=== PATIENT | male | born 2000 | race Caucasian/White ===

== ENCOUNTER 2023-07-22 09:20 | Outpatient (CLI) | payer OTHER ==
--- NOTE | 2023-07-22 09:20 | Sleep Patient Instructions ---
Sleep Center Visit Summary - Patient Visit Information Reason for Visit: Initial consult for evaluation of sleep disordered breathing and other sleep issues. - Patient Instructions Instructions Attached: Sleep Study, Sleep Study Home Monitor Additional Instructions: You will be completing a sleep study, either an in-lab polysomnography (PSG) or home sleep study (HST). You will follow-up in the sleep care office after the sleep study is completed to hear the results and talk about therapy, if needed. You will be called by our office staff to schedule this appointment, but you may contact us with any questions. - Clinic Information Contact: [facility] [address] [place] [id number] [email or web address] T: [phone]
--- NOTE | 2023-07-22 09:23 | SLEEP CARE CONSULTATION ---
Information from patient questionnaire entered by Mango Becerra. I have reviewed and concur with the information entered by Mango Becerra. This document represents the service I personally performed and the decisions made by me, Reema Ellsworth ARNP. History of Present Illness Service Date and Time: 07/22/2023 0840 Reason for Visit: New patient Chief Complaint: reports: Unrefreshed sleep, Excessive daytime sleepiness, Observed pauses in breathing, Frequent awakenings at night Date of Onset: OVER A YR Usual bedtime: 2200 Time it takes to fall asleep: 1-2HRS Snores at night: Yes Observed to quit breathing while asleep: Yes Sleeps alone due to snoring: No Number of times waking at night: 3-4 Reasons for waking at night: reports: Gasping for air (has in the past but not recently, last month), Bathroom, Other (UNKNOWN, NOISE). denies: Choking, Snoring Toss, Turn, or Twitch while sleeping: Yes Recalls having dreams: No Usually gets out of bed at: 0600 Feels refreshed in the morning: No Morning headache: Yes (every few days, last about an hour) Sleepy or fatigued during the day: No Ever fallen asleep while driving: No Takes day naps: No Dreams during day naps: No Additional HPI information: I had the pleasure of seeing MELCHOR MARIE today regarding the possibility of him having a sleep disorder. His current complaints are unrefreshed sleep, excessive daytime sleepiness, observed pauses in breathing and frequent night awakenings. He says he feels like he does not get enough sleep at night. His spouse tells him that he will hold his breath in his sleep and that he does snore. He thinks he may need more than 8 hours to feel rested but normally cannot sleep that long. - Parasomnia Symptoms Ever been unable to move upon waking from sleep: No Walks in sleep: Yes (when he was younger, no recent incidences as far as he knows) Talks in sleep: Yes Ever acted out dreams in sleep: No Ever felt weak in the knees when startled or emotional: No Bothered by creepy, crawly, restless sensations in legs: No Problems with memory or concentration: Yes (memory mostly, some concentration, easily distracted now) Subjective Initial [place] Sleepiness Scale score: 16 (05/10/24) Past Medical History Past Medical History: reports: Other (no significant medical history) Social History The patient's occupation is a AM. Patient is and lives in . Have you smoked in the past 12 months: No (uses smokeless tobacco) Alcohol use: Yes Alcohol amount and frequency: MINIMAL 1 DRINK EVERY 2 WEEKS Caffeine use: Yes Caffeine amount and frequency: 1-2 QD DURING THE WEEK NONE ON THE WEEKEND Family History Family history of sleep disordered breathing: No Allergies and Home Medications Known drug allergies: Yes ( LISTED) Drug allergies reviewed: Yes Home medication list reviewed: Yes (as listed) Allergy and home medication list: Allergies Penicillins Allergy (Verified 07/21/23 14:59) Home Medications Biotin See Rx Instructions .ROUTE .COMPLEX 07/22/23 [History] [place]-3 Fatty Acids [[place]-3] See Rx Instructions .ROUTE .COMPLEX 07/22/23 [History] Review of Systems Cardiovascular: denies: high blood pressure Gastrointestinal: denies: heartburn Urinary: reports: frequency, urgency Psychiatric: denies: anxiety, depression Ear/Nose/Throat: reports: wisdom teeth removed. denies: tonsillectomy Endocrine: reports: sluggishness, too hot or cold Musculoskeletal: reports: neck pain, back pain Physical Exam Vital signs obtained and entered by: MANGO Luis MA Blood Pressure: 128/80 (RIGHT ARM) Cuff size: regular Heart Rate: 62 O2 Saturation: 99 Height: 5 ft 11 in Weight: 163 lb Body Mass Index: 22.7 BMI Classification: Normal Neck circumference: 15.5 Mouth and throat: narrow oropharynx Soft palate: long Hard palate: arched Uvula: normal Uvula visualization: 50% Mallampati Class II Tongue: enlarged in size with teeth mccarthy on lateral edges Tonsils: 1+ Neck: normal w/o lymphadenopathy or thyromegaly Heart: regular rate and rhythm Lungs: clear bilaterally Impression and Plan 1. Suspected Obstructive Sleep Apnea-Hypopnea Syndrome, as suggested by a history of loud and irregular snoring, observed cessation of breath while asleep, gasping or choking in sleep, morning headache, frequent awakening during the night, unrefreshed sleep, cognitive impairment, and excessive daytime sleepiness. Narrow oropharynx and obesity are common predisposing factors for obstructive sleep apnea-hypopnea syndrome. I recommend proceeding to poly somnography to confirm the diagnosis and to assess severity. If the patient has significant sleep disordered breathing, a manual CPAP titration study will also be performed to find the optimal treatment pressure. I informed the patient of what the sleep studies involve and after some discussion, obtained agreement to proceed. The pathophysiology of obstructive sleep apnea-hypopnea syndrome was discussed with the patient and health risks of cardiovascular and cerebrovascular disease if not treated. Risks of drowsy driving discussed in detail and patient advised to avoid long distance driving and to car repairer pullman at the first sign of drowsiness. Patient agreed to plan. * Schedule polysomnography * Avoid long distance driving or driving when feeling sleepy. * Avoid alcohol, sedative and muscle relaxant around bedtime. * Review instructions provided by trained office staff on how to prepare for the sleep study. * Return for follow-up after sleep study completed. Plan: PSG and follow up Visit Type: In Office Time Spent with Patient (minutes): 18 Provider Statement: I spent 100% of the Face to Face Visit with the patient with greater than 50% spent counseling the patient and coordination of care.
[2023-07-22 09:24] VITALS: BP 128/80; O2SAT 99
== END 2023-07-22 09:21 | disposition home or self-care (01) ==
LOC: SC 09:20
PROVIDERS: ATTEND Nurse Practitioner Family
DX: R06.83 Snoring (principal); R06.81 Apnea, not elsewhere classified; G47.8 Other sleep disorders; R51.9 Headache, unspecified; R41.89 Other symptoms and signs involving cognitive functions and awareness; G47.10 Hypersomnia, unspecified; F17.290 Nicotine dependence, other tobacco product, uncomplicated
CPT/HCPCS: 99202; 99212

== ENCOUNTER 2023-08-12 12:55 | Outpatient (CLI) | payer OTHER | END 2023-08-12 12:56 | disposition home or self-care (01) | LOC: SC 12:55 | PROVIDERS: ATTEND Nurse Practitioner Family | DX: R06.83 Snoring (principal); G47.8 Other sleep disorders; R06.81 Apnea, not elsewhere classified; R51.9 Headache, unspecified; G47.10 Hypersomnia, unspecified | CPT/HCPCS: 95806 ==

== ENCOUNTER 2023-10-02 15:50 | Outpatient (CLI) | payer OTHER ==
--- NOTE | 2023-10-02 15:45 | SLEEP CARE CONSULTATION ---
Information from patient questionnaire entered by Mango Becerra. I have reviewed and concur with the information entered by Mango Becerra. This document represents the service I personally performed and the decisions made by , Reema Ellsworth ARNP. History of Present Illness Service Date and Time: 10/02/2023 1520 Initial [place] Sleepiness Scale score: 16 (07/11/23) Current [place] Sleepiness Scale score: 20 (10/02/23) Additional HPI information: MELCHOR MARIE returns via telephone visit for follow up and results of the recently performed home sleep study. The patient was informed of the following findings: The quality of the study is poor due to extensive loss of pulse oximetry signal. Possible obstructive sleep apnea-hypopnea based on the available airflow tracing. Due to the extensive data loss, this home sleep apnea test (HSAT) is non-diagnostic and should be repeated. Sleep Study - Results Type of Sleep Study: Home sleep study (COMPLETED 08/13/23) Polysomnography/Home Sleep Study results: Physician Impression: 1. The quality of the study is poor due to extensive loss of pulse oximetry signal. The length of the study is adequate (> 240 minutes). Please also see the tabulated and graphic data. 2. Possible obstructive sleep apnea-hypopnea based on the available airflow tracing. 3. Hypoxia cannot be determined. 4. Heart rate cannot be determined. Recommendation: Due to the extensive data loss, this home sleep apnea test (HSAT) is non- diagnostic and should be repeated. An in-laboratory polysomnography should be considered as it is more reliable, accurate, and the gold standard for diagnosing sleep-related breathing disorder Allergies and Home Medications Known drug allergies: Yes (as listed) Drug allergies reviewed: Yes Home medication list reviewed: Yes (no changes) Allergy and home medication list: Allergies Penicillins Allergy (Verified 10/02/23 15:20) Review of Systems Review of systems same as previous: Yes (NO CHANGE) Physical Exam Vital signs obtained and entered by: MANGO Luis MA Height: 5 ft 11 in (PER PT) Weight: 165 lb (PER PT) Body Mass Index: 23.0 BMI Classification: Normal Impression and Plan 1. Suspected Obstructive Sleep Apnea-Hypopnea Syndrome, as suggested by a history of loud and irregular snoring, observed cessation of breath while asleep, unrefreshed sleep, cognitive impairment, and excessive daytime sleepiness. He did a HST but due to extensive pulse oximetry signal it was non- diagnostic. I recommend proceeding toa in lab polysomnography to confirm the diagnosis and to assess severity. I obtained agreement to proceed. The pathophysiology of obstructive sleep apnea-hypopnea syndrome was discussed with the patient and health risks of cardiovascular and cerebrovascular disease if not treated. Risks of drowsy driving discussed in detail and patient advised to avoid long distance driving and to pick pulling machine tender at the first sign of drowsiness. Patient agreed to plan. * Schedule polysomnography * Avoid long distance driving or driving when feeling sleepy. * Avoid alcohol, sedative and muscle relaxant around bedtime. * Attempt to lose weight. * Review instructions provided by trained office staff on how to prepare for the sleep study. * Return for follow-up after sleep study completed. Plan: PSG and follow up Visit Type: Telehealth Phone Video Type: Doximity Patient Location: Home Location of Provider: Office Patient agrees and consents to this telehealth visit type: Yes Patient agrees to have their insurance billed: Yes Time Spent with Patient (minutes): 12 Provider Statement: I spent 100% of the Telehealth Phone Call with the patient with greater than 50% spent counseling the patient and coordination of care.
== END 2023-10-02 15:51 | disposition home or self-care (01) ==
LOC: SC 15:50
PROVIDERS: ATTEND Nurse Practitioner Family
DX: R06.83 Snoring (principal); R06.81 Apnea, not elsewhere classified; G47.8 Other sleep disorders; R41.89 Other symptoms and signs involving cognitive functions and awareness; G47.10 Hypersomnia, unspecified
CPT/HCPCS: 99441